=== PATIENT | male | born 1950 | race Caucasian/White ===

== ENCOUNTER 2021-05-09 09:16 | Emergency (ER) | payer MEDICARE, SELFPAY ==
[2021-05-09 09:34] VITALS: BP 160/88; PULSE 88; RESP 16; TEMP 37.6; O2SAT 95; BMI 32.5
[2021-05-09 10:02] LABS: COVID-19 Test Negative (Negative)
--- NOTE | 2021-05-09 10:26 | ED_ITS ---
HPI - URI/Sore Throat General Chief Complaint: Upper Respiratory Symptoms Stated Complaint: Cough/headache Time Seen by Provider: 05/09/21 10:13 Source: patient Mode of arrival: ambulatory Limitations: no limitations History of Present Illness HPI Narrative: 70-year-old male presents to ED requesting COVID testing. Patient states having mild sniffles. no shortness of breath or chest pain. Patient received 3 doses of the COVID vaccine. Patient denies any abdominal pain, flank pain, shortness of breath, coughing up blood, swelling of lower extremities, calf tenderness, headache, dizziness, nausea, or vomiting Review of Systems Review of Systems: Yes all other systems are reviewed and are negative Constitutional: Constitutional: Reports as per HPI and Reports no additional constitutional complaints Eyes: Eyes: Reports as per HPI and Reports no additional eye complaints ENT: Reports system reviewed and no additional complaints, except as documented, Reports as per HPI and Reports nasal congestion Cardiovascular: Cardiovascular: Reports as per HPI and Reports no additional cardiovascular complaints Respiratory: Respiratory: Reports as per HPI and Reports no additional respiratory complaints Gastrointestinal: Gastrointestinal: Reports as per HPI and Reports no additional gastrointestinal complaints Genitourinary: Genitourinary: Reports no additional male genitourinary complaints and Reports as per HPI Musculoskeletal: Musculoskeletal: Reports no additional musculoskeletal complaints and Reports as per HPI Integumentary/Breasts: Skin/Breast: Reports system reviewed and no additional complaints, except as docu and Reports as per HPI Neurologic: Reports system reviewed and no additional complaints, except as documented and Reports as per HPI Psychiatric: Psychiatric: Reports no additional psychiatric complaints and Reports as per HPI [facility] Social History Social History Advance Directives: No Advance Directives Information Provided: No Physical Exam Vital Signs: Vital Signs: Last Vital Signs Temp 99.6 F 05/09/21 09:34 Pulse 88 05/09/21 09:34 Resp 16 05/09/21 09:34 BP 160/88 H 05/09/21 09:34 Pulse Ox 95 05/09/21 09:34 BMI result Body Mass Index 32.5 Const: General: cooperative, healthy appearing, comfortable, no acute distress, well developed, alert, awake and Physically active HENMT: Head: Yes normal to inspection, Yes No palpable skull fracture present, Yes normocephalic, Yes atraumatic and No abrasion Eyes: General: appearance normal, both eyes and all related structures Neck: Neck: Yes normal visual inspection, Yes full ROM, Yes no lymphadenopathy, Yes no meningeal signs, Yes trachea midline, Yes supple, No anterior neck swelling and No tender Chest: Chest palpation & inspection: normal inspection of the chest and normal palpation of entire chest wall Resp: Effort & Inspection: normal respiratory effort and able to speak in complete sentences Auscultation: clear to auscultation bilaterally Cardio: Jugular venous distension: no JVD Heart sounds: S1 normal heart sound present and S2 normal heart sound present GI: Inspection: Yes normal to inspection and No abdominal wall ecchymosis Palpation (GI): Soft to palpation, not firm, nontender, no guarding and not rigid : General: No CVA tenderness and Yes no CVA tenderness Back/Spine/Pelvis: Back: no CVA tenderness, No CVA tenderness and No back tenderness Skin: General skin exam: no rashes or lesions noted and elasticity normal Neuro: General: gait normal, no meningeal signs and CN's II-XI intact bilaterally Cranial nerves: Yes CN's II-XII intact bilaterally Extrem: Other: Lower extremities negative for swelling, piting edema, or calf tenderness General: Yes normal to inspection and Yes full ROM Psych: Appearance: grossly normal, well kempt and not disheveled Course Course Course Narrative: Covid test orddered Reevaluation(s) Reevaluation #1: Covid test negative Time: 10:28 MDM - URI/Sore Throat Lab Data Labs: Lab Results 05/09/21 Range/Units 09:36 COVID-19 (ROXANA) Negative (Negative) COVID-19 Clin Com See Note Discharge Plan Discharge Clinical Impression: Upper respiratory infection Patient Disposition: Home, Self-Care Instructions: Upper Respiratory Infection (ED) Additional Instructions: Return to the ED for any chest pain, shortness of breath, weakness, dizziness, intractable fever, coughing up blood, abdominal pain, diarrhea, headache, dizziness, or any other concerning symptoms. If symptoms worsen recommend retesting of COVID in 72 hours. Interventions: ED Discharge Assessment Last Done: 05/09/21 10:51 Discharge Date/Time: 05/09/21 10:52 Print Language: Ethiopian
== END 2021-05-09 10:52 | disposition home or self-care (01) ==
PROVIDERS: Emergency Provider Emergency Medicine; PCP Internal Medicine
DX: J06.9 Acute upper respiratory infection, unspecified (principal); Z20.822 Contact with and (suspected) exposure to COVID-19
CPT/HCPCS: 36415; 87635; 99283